=== PATIENT | male | born 1935 | race Caucasian/White ===

== ENCOUNTER 2016-12-28 19:03 | Emergency (ER) | payer MEDICARE, OTHER ==
[~2016-12-28] VITALS: Ht 180.3 cm; Wt 69.0 kg
[~2016-12-28 19:03] MED LIST: BAYE325T3 PO; CARV6.252 PO; DIGO0.12 PO; FISH120014 PO; FURO20TA PO; IRON28TA PO; KLOR8TAB PO; POLY255S PO; PROS5TAB2 PO; RAMI10CA PO; UMEC1AER INH; VITA400C28 PO
[2016-12-28 19:09] VITALS: BP 171/72; PULSE 94; RESP 16; TEMP 96.9; O2SAT 99
[2016-12-28 19:25] VITALS: BP 162/71
[2016-12-28] MEDS ORDERED: CEPH-460 PO (19:25)
[2016-12-28] MEDS ORDERED: BACT2OIN TOPICAL (19:25)
--- NOTE | 2016-12-28 19:25 | PD ---
HPI Chief Complaint: Skin Problem Time Seen by Provider: 19:15 Travel History International Travel<30 days: No Contact w/Intl Traveler<30days: No Traveled to known affect area: No History of Present Illness HPI The patient is a 80-year-old male who presents to the emergency department for skin irritation of the extensor surface between the first and second digit. The patient states approximate 5 days ago he has superficial laceration to the left hand from the doorjamb. The patient states he had a long and superficial scratch which initially bled. He now notes some dry skin over the affected area with a scab formation. He does complain of mild pain over the affected area but denies any difficulty using the left upper extremity. He states his last tetanus shot is within the last 5 years. He denies any drainage from the affected area, does note mild swelling. Symptoms are moderate, exacerbated after trauma from a doorjamb, and there are no current alleviating factors. 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) AICD: Yes (12/12/10) Cardiac Surgery: Yes (AORTIC STENTS, AICD) Other Surgery: Yes (BILATERAL STENTS IN LEGS) Social History Alcohol Use: No Tobacco Use: No Substance Use: No Allergies-Medications (Allergen,Severity, Reaction): Coded Allergies: No Known Allergies (Verified , 12/28/16) Reported Meds & Prescriptions Reported Meds & Active Scripts Active Active Prescriptions or Reported Medications Unobtainable Review of Systems General / Constitutional: No: Fever Musculoskeletal: Positive: Pain Skin: Positive Other Neurologic: No: Paresthesia (as noted in history of present illness), Sensory Disturbance Physical Exam Narrative GENERAL: Awake, alert, very pleasant 80-year-old male who appears younger than his stated age and is in no acute respiratory distress. SKIN: Warm and dry. HEAD: Atraumatic. Normocephalic. CARDIOVASCULAR: Pacemaker in place left chest wall. MUSCULOSKELETAL: Inspection of the left hand does reveal scant formation over the webspace between the first and second digit of the left hand. There is no abscess palpable underneath, mild inflammation around the affected area. No drainage noted. Positive left radial pulse. Intrinsic and muscles are intact. NEUROLOGICAL: Awake and alert. No obvious cranial nerve deficits. Motor grossly within normal limits. Normal speech. PSYCHIATRIC: Appropriate mood and affect; insight and judgment normal. Data Data Last Documented VS Vital Signs Date Time Temp Pulse Resp B/P Pulse Ox O2 Delivery O2 Flow Rate FiO2 12/28/16 19:09 96.9 94 16 171/72 99 Room Air Orders Cephalexin (Keflex) (12/28/16 19:30) [facility] Medical Decision Making Medical Screen Exam Complete: Yes Emergency Medical Condition: Yes Medical Record Reviewed: Yes Differential Diagnosis Differential diagnosis includes cellulitis, infected wound, abscess, laceration , abrasion, contusion, hematoma. Narrative Course The patient will be placed on Bactroban and Keflex. He is advised to clean areas twice a day with soap and water, apply Bactroban, and the follow-up with his primary physician. The patient states his tetanus shot is up-to-date. Return if symptoms worsen or progress. Patient Instructions: General Instructions Additional Instructions: Clean the area twice a day with soap and water. Apply Bactroban as directed. Follow-up with your primary physician. Medications as directed. Return if symptoms worsen or progress. Med/Other Pt SpecificInfo: Prescription(s) given Scripts Cephalexin (Keflex)500 Mg [id number] Mg PO Q6H 5 Days Ref 0 Prov:Gus Vanessa MD 12/28/16 Mupirocin Topical (Bactroban Topical)2% Oint1 Appl TOPICAL BID #1 TUBE Ref 0 Prov:Gus Vanessa MD 12/28/16 Disposition: 01 DISCHARGE HOME Condition: Stable Gus Vanessa MD Dec 28, 2016 19:25
[2016-12-28] MEDS ORDERED: CEPHALEXIN MONOHYDRATE 500 MG CAP PO ONE (19:30)
== END 2016-12-28 19:42 | disposition home or self-care (01) ==
LOC: NEPA 19:03
DX: L08.9 Local infection of the skin and subcutaneous tissue, unspecified (principal)
CPT/HCPCS: 99282

== ENCOUNTER 2017-05-23 09:45 | Emergency (ER) | payer OTHER ==
[~2017-05-23] VITALS: Ht 180.3 cm; Wt 75.0 kg
[~2017-05-23 09:45] MED LIST changes: +BACT2OIN TOPICAL; -BAYE325T3 PO; -CARV6.252 PO; +CEPH-460 PO; -DIGO0.12 PO; -FISH120014 PO; -FURO20TA PO; -IRON28TA PO; -KLOR8TAB PO; -POLY255S PO; -PROS5TAB2 PO; -RAMI10CA PO; -UMEC1AER INH; -VITA400C28 PO
[2017-05-23] MEDS ORDERED: OMEG12007 PO (10:04)
[2017-05-23] MEDS ORDERED: ASPI325T PO (10:04)
[2017-05-23] MEDS ORDERED: MIRA3350 PO (10:04)
[2017-05-23] MEDS ORDERED: DIGO0.12 PO (10:04)
[2017-05-23] MEDS ORDERED: RAMI10CA PO (10:04)
[2017-05-23] MEDS ORDERED: SPIRCAP INH (10:04)
[2017-05-23] MEDS ORDERED: FURO20TA PO (10:04)
[2017-05-23] MEDS ORDERED: DIGO0.25 PO (10:04)
[2017-05-23] MEDS ORDERED: VITA100064 PO (10:04)
[2017-05-23] MEDS ORDERED: CARV6.252 PO (10:04)
[2017-05-23] MEDS ORDERED: PROS5TAB PO (10:04)
[2017-05-23 10:05] VITALS: BP 144/79; PULSE 72; RESP 16; TEMP 97.8; O2SAT 96
[2017-05-23 10:08] VITALS: BP 157/68; PULSE 63; RESP 16; O2SAT 92
[2017-05-23] MEDS ORDERED: SODIUM CHLORIDE 0.9% FLUSH 10 ML FLUSH IVF PRN (10:30)
[2017-05-23] MEDS ORDERED: ONDANSETRON HCL 4 MG/2 ML VIAL IVP ONE (10:30)
--- NOTE | 2017-05-23 10:30 | PD ---
HPI Chief Complaint: General Weakness Time Seen by Provider: 10:04 Travel History International Travel<30 days: No Contact w/Intl Traveler<30days: No Traveled to known affect area: No History of Present Illness HPI This patient complains of generalized weakness. He has some nausea and malaise and lightheadedness. No vertigo or chest pain. No syncope. Symptoms severity is moderate. Duration one day. No alleviating factors. 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 Fish Oil 1,200 mg Softgel (Sylmar-3S/Dha/Epa/Fish Oil) 1 Each Capsule 1 Cap PO DAILY Vitamin D3 (Cholecalciferol) 1,000 Unit Tab 1,000 Units PO DAILY Aspirin 325 Mg Tab 325 Mg PO DAILY Proscar (Finasteride) 5 Mg Tab 5 Mg PO DAILY Do not crush. Spiriva Handihaler (Tiotropium Inh) 18 Mcg Cap 18 Mcg INH DAILY 1 capsule = 18 mcg Furosemide 20 Mg Tab 20 Mg PO DAILY Digoxin 0.125 Mg Tab 0.125 Mg PO DAILY Ramipril 10 Mg Cap 10 Mg PO DAILY Carvedilol 6.25 Mg Tab 6.25 Mg PO BID Review of Systems General / Constitutional: No: Fever Eyes: No: Visual changes HENT: Positive: Lightheadedness, No: Headaches Cardiovascular: No: Chest Pain or Discomfort Respiratory: No: Shortness of Breath Gastrointestinal: Positive: Nausea, No: Abdominal Pain Genitourinary: No: Dysuria Musculoskeletal: Positive: Weakness, No: Pain Skin: No Rash Neurologic: Positive: Weakness Psychiatric: No: Depression Endocrine: No: Polydipsia Hematologic/Lymphatic: No: Easy Bruising Physical Exam Narrative GENERAL: Well-nourished, well-developed patient in no apparent distress. SKIN: Focused skin assessment reveals no rash and nodules. Skin is Warm and dry. HEAD: Atraumatic. Normocephalic. EYES: Pupils equal and round. No scleral icterus. No injection or drainage. ENT: No nasal bleeding or discharge. Mucous membranes pink and moist. NECK: Trachea midline. No JVD. CARDIOVASCULAR: Irregularly irregular rhythm. No murmur appreciated. Heart rate of 65-70 RESPIRATORY: No accessory muscle use. Clear to auscultation. Breath sounds equal bilaterally. GASTROINTESTINAL: Abdomen soft, non-tender, nondistended. Hepatic and splenic margins not palpable. MUSCULOSKELETAL: No obvious deformities. No clubbing. No cyanosis. No edema. NEUROLOGICAL: Awake and alert. No obvious cranial nerve deficits. Motor grossly within normal limits. Normal speech. PSYCHIATRIC: Appropriate mood and affect; insight and judgment normal. Data Data Last Documented VS Vital Signs Date Time Temp Pulse Resp B/P Pulse Ox O2 Delivery O2 Flow Rate FiO2 05/23/17 10:40 16 97 Room Air 05/23/17 10:10 65 05/23/17 10:08 157/68 05/23/17 10:05 97.8 Orders Electrocardiogram (05/23/17 ) Electrocardiogram (05/23/17 10:23) Basic Metabolic Panel (Bmp) (05/23/17 10:23) Complete Blood Count With Diff (05/23/17 10:23) Urinalysis - C+S If Indicated (05/23/17 10:23) Ecg Monitoring (05/23/17 10:23) Iv Access Insert/Monitor (05/23/17 10:23) Oximetry (05/23/17 10:23) Ondansetron Inj (Zofran Inj) (05/23/17 10:30) Sodium Chloride 0.9% Flush (Ns Flush) (05/23/17 10:30) Labs Laboratory Tests Test 05/23/17 05/23/17 10:30 12:20 White Blood Count 8.3 TH/MM3 Red Blood Count 4.59 MIL/MM3 Hemoglobin 14.4 GM/DL Hematocrit 42.2 % Mean Corpuscular Volume 92.0 FL Mean Corpuscular Hemoglobin 31.3 PG Mean Corpuscular Hemoglobin 34.0 % Concent Red Cell Distribution Width 14.2 % Platelet Count 181 TH/MM3 Mean Platelet Volume 9.0 FL Neutrophils (%) (Auto) 79.6 % Lymphocytes (%) (Auto) 13.0 % Monocytes (%) (Auto) 6.1 % Eosinophils (%) (Auto) 0.9 % Basophils (%) (Auto) 0.4 % Neutrophils # (Auto) 6.6 TH/MM3 Lymphocytes # (Auto) 1.1 TH/MM3 Monocytes # (Auto) 0.5 TH/MM3 Eosinophils # (Auto) 0.1 TH/MM3 Basophils # (Auto) 0.0 TH/MM3 CBC Comment DIFF FINAL Differential Comment Sodium Level 137 MEQ/L Potassium Level 5.3 MEQ/L Chloride Level 105 MEQ/L Carbon Dioxide Level 23.6 MEQ/L Anion Gap 8 MEQ/L Blood Urea Nitrogen 34 MG/DL Creatinine 1.40 MG/DL Estimat Glomerular Filtration 48 ML/MIN Rate Random Glucose 132 MG/DL Calcium Level 9.3 MG/DL Urine Color YELLOW Urine Turbidity CLEAR Urine pH 5.5 Urine Specific [place] 1.024 Urine Protein TRACE mg/dL Urine Glucose (UA) NEG mg/dL Urine Ketones NEG mg/dL Urine Occult Blood NEG Urine Nitrite NEG Urine Bilirubin NEG Urine Urobilinogen LESS THAN 2.0 MG/DL Urine Leukocyte Esterase NEG Urine RBC 1 /hpf Urine WBC LESS THAN 1 /hpf Urine Hyaline Casts 3 /lpf Microscopic Urinalysis Comment CULT NOT INDICATED MDM Medical Decision Making Medical Screen Exam Complete: Yes Emergency Medical Condition: Yes Medical Record Reviewed: Yes Differential Diagnosis Cardiac arrhythmia, electrolyte abnormality, dehydration Narrative Course I have reviewed the patient's electronic medical record. IV placed CBC is normal Metabolic profile is normal I reviewed his EKG which shows A. fib in the 60s A. fib is chronic for him. He does take daily aspirin only. Denies blood thinners. He has a defibrillator but it has not fired. Extended cardiac monitoring reveals A. fib but rate controlled Urinalysis is normal Diagnosis Primary Impression: Generalized weakness Additional Instructions: The patient was advised to follow up with their physician and return if they worsen. Med/Other Pt SpecificInfo: Other Disposition: 01 DISCHARGE HOME Condition: Stable Kocisko,Stephen J. MD May 23, 2017 10:30
[2017-05-23 10:40] VITALS: RESP 16; O2SAT 97
[2017-05-23 10:54] LABS: AUTOMATED NEUTROPHIL # 6.6 TH/MM3 (1.8-7.7); BASOPHIL % 0.4 % (0.0-2.0); EOSINOPHIL # 0.1 TH/MM3 (0-0.4); EOSINOPHIL % 0.9 % (0.0-4.0); HEMATOCRIT 42.2 % (39.0-51.0); HEMO FLAGS DIFF FINAL; LYMPHOCYTE # 1.1 TH/MM3 (1.0-4.8); MEAN CORPUSCULAR HEMOGLOBIN 31.3 PG (27.0-34.0); MONO % 6.1 % (0.0-8.0); NEUT % 79.6 % (16.0-70.0); PLATELET COUNT 181 TH/MM3 (150-450); RED BLOOD COUNT 4.59 MIL/MM3 (4.50-5.90); RED CELL DISTRIBUTION WIDTH 14.2 % (11.6-17.2); WHITE BLOOD COUNT 8.3 TH/MM3 (4.0-11.0)
[2017-05-23 11:06] LABS: BICARBONATE 23.6 MEQ/L (21.0-32.0); POTASSIUM 5.3 MEQ/L (3.5-5.1)
[2017-05-23 12:39] LABS: BLOOD, URINE NEG (NEG); COMMENT (UR) CULT NOT INDICATED; CULTURE IF INDICATED CULT NOT INDICATED; GLUCOSE,URINE NEG (NEG); HYALINE CAST, URINE 3 /lpf (RARE); KETONE, URINE NEG (NEG); NITRITE,URINE NEG (NEG); PH, URINE 5.5 (5.0-8.5); URINE COLOR YELLOW (YELLW/STRAW)
--- NOTE | 2017-05-25 10:06 | EKG ---
Date Performed: 05/23/2017 Time Performed: 10:00:13 PTAGE: 81 years EKG: ATRIAL FIBRILLATION PACED VENTRICULAR RHYTHM POSSIBLE ANTEROLATERAL MYOCARDIAL INFARCTION A BNORMAL ECG PREVIOUS TRACING : 12/08/14 DOCTOR: Andre Carranza Interpretating Date/Time 05/25/2017 10:05:12
== END 2017-05-23 14:46 | disposition home or self-care (01) ==
LOC: NEPE 09:45
DX: R53.1 Weakness (principal); I48.91 Unspecified atrial fibrillation; R42 Dizziness and giddiness; R11.0 Nausea; R94.31 Abnormal electrocardiogram [ECG] [EKG]; I25.2 Old myocardial infarction; J44.9 Chronic obstructive pulmonary disease, unspecified; I10 Essential (primary) hypertension; Z79.82 Long term (current) use of aspirin
CPT/HCPCS: 80048; 81001; 85025; 93005; 96374; 99284; J2405